=== PATIENT | female | born 1955 | race Caucasian/White ===

== ENCOUNTER → 2016-06-05 | Outpatient (CLI) | payer MEDICAID ==
--- NOTE | 2016-06-05 16:27 | DX ---
PA and Lateral Chest Clinical Indications: Dyspnea. Findings: The lungs are clear, and no masses are found. The heart and pulmonary vessels are normal. Descending thoracic aorta is tortuous, raising a possibility of hypertension. There are no pleural effusions and no pneumothorax. The bones are unremarkable for this age. Impression: No acute cardiopulmonary features. Query systemic hypertension.
== END ==
LOC: BMCIMAGING 14:14
PROVIDERS: ATTEND Internal Medicine Pulmonary Disease
DX: R06.00 Dyspnea, unspecified (principal)

== ENCOUNTER → 2016-07-10 | Outpatient (CLI) | payer MEDICAID ==
--- NOTE | 2016-07-10 23:45 | CT ---
CT Chest Unenhanced History: Possible nodule on radiographs, former smoker. Technique: Axial unenhanced images were obtained through the chest. Coronal MIPs were performed. D ose reduction techniques were utilized. Comparison: PA and lateral chest June 05, 2016. Findings: There is an 8-mm ground-glass opacity in the right upper lobe (series #3, image #54). A s ubtle 2-cm ground-glass opacity is present in the superior segment right lower lobe (image #90). The re is minimal ground-glass associated with a cyst/bulla in the left upper lobe (series #3, image #76) . There is a 5-mm noncalcified nodule/cluster of tiny nodules in the right upper lobe (image #80). A 4-mm anterior subpleural right middle lobe nodule is present (image #155). Additional tiny nodule s are present. There is lingular scarring/atelectasis as well as anterior left lower lobe atelectasi s, accounting for the finding on radiographs. Aneurysmal dilatation of the ascending aorta is presen t, measuring 4.3 x 4.4 cm (AP x transverse) at the level of the main pulmonary artery. The heart siz e is normal. There is trace pericardial fluid. No pathologically enlarged lymph nodes are identifie d. Degenerative change is present in the spine, with no aggressive osseous lesions. There is a lobulated low-attenuation mass versus adjacent masses in the subcapsular left hepatic lobe , measuring up to 6.3 x 4.3 cm in maximal transverse diameter (series #4, image #234). There is cent ral low attenuation in the right margin of the mass. Impression: 1. Indeterminate 6.3 cm hepatic mass, for which MR abdomen with contrast is recommended for further evaluation if this has not been previously evaluated at an outside institution. 2. Aneurysmal dilatation of the ascending aorta, measuring 4.3 cm. 3. Scattered ground-glass opacities and tiny pulmonary nodules, for which initial follow-up of three months is recommended per Fleischner Society guidelines in a smoker. 4. Benign lingular and left lower lobe atelectasis/scarring, accounting for the finding on radiograp hs. 5. Additional findings as above. Findings discussed with [place] in Fuad Yarbrough's office 07/13/2016 at 9:38.
== END ==
LOC: FIMAGING 11:10
PROVIDERS: ATTEND Internal Medicine Pulmonary Disease
DX: R16.0 Hepatomegaly, not elsewhere classified (principal); I71.2 Thoracic aortic aneurysm, without rupture; R91.1 Solitary pulmonary nodule; J98.4 Other disorders of lung; Z87.891 Personal history of nicotine dependence

== ENCOUNTER 2016-07-22 12:50 | Emergency (ER) | payer MEDICAID ==
--- NOTE | 2016-07-22 13:09 | EDPHY ---
H & P Time Seen by Provider: 07/22/16 13:09 HPI/ROS: CHIEF COMPLAINT: Right-sided back pain. HISTORY OF PRESENT ILLNESS: The patient is a 61-year-old female who presents with right lower back pain. This morning she developed stabbing right lower back pain that is worsened with position change. It is alleviated with walking or lying flat. The pain does not radiate and is a 1/10 while at rest. No recent injury. She denies abdominal pain or urinary symptoms. She does not have a history of kidney stones. REVIEW OF SYSTEMS: A complete 10-point review of systems was performed and is negative except for those items mentioned in the HPI, except for chronic cough. Past Medical/Surgical History: COPD Social History: Former smoker. Smoking Status: Former smoker Physical Exam: General Appearance: Alert, talkative, does not appear in pain Eyes: Pupils equal and round, no conjunctival pallor ENT, Mouth: Mucous membranes moist Neck: Normal inspection Respiratory: Lungs are clear to auscultation Cardiovascular: Regular rate and rhythm Gastrointestinal: Abdomen is soft and non-tender Back: Right paraspinous tenderness Neurological: A&O, motor 5/5, sensory intact to light touch, normal gait Skin: Warm and dry, no rash Extremities: Normal inspection, negative straight leg raise Psychiatric: Mood and affect normal Constitutional: Initial Vital Signs Temperature (C) 36.7 C 07/22/16 12:53 Heart Rate 91 07/22/16 12:53 Respiratory Rate 18 07/22/16 12:53 Blood Pressure 151/98 H 07/22/16 12:53 O2 Sat (%) 93 07/22/16 12:53 O2 Delivery Mode Room Air Allergies/Adverse Reactions: No Known Allergies Allergy (Unverified 07/22/16 12:56) Home Medications: Medication Instructions Recorded Disulfiram [Antabuse 250 MG (*)] 250 mg PO DAILY 07/22/16 Levothyroxine [Synthroid 112 mcg 112 mcg PO DAILY06 07/22/16 (*)] Pravastatin Sodium 20 mg PO 07/22/16 Sertraline HCl [Zoloft 25mg (*)] 25 mg PO DAILY 07/22/16 Medical Decision Making ED Course/Re-evaluation: This patient presents with musculoskeletal back pain. No signs or symptoms consistent with intra-abdominal or serious etiology for pain. Dip urinalysis negative for blood. 600mg PO Ibuprofen administered for pain. Past medical record reviewed. Recent CT scan reveals multiple findings, and including multiple lung nodules, a liver mass and a ascending aortic aneurysm. She has been quite worried about the CT scan findings, so I reviewed the findings with her and gave her a printed copy of the CT scan report. She has a follow-up appointment with Dr. Yarbrough tomorrow to review these findings and to further evaluate them. I do not feel that any these findings are related to her complaint today. Differential Diagnosis: Differential diagnosis for back pain includes muscular pain, herniated disc, epidural abscess, discitis, spine fracture, intra-abdominal causes and urinary tract infection. - Data Points Medications Given: Discontinued Medications Ibuprofen (Motrin) 600 mg PO EDNOW ONE Stop: 07/22/16 13:44 Last Admin: 07/22/16 13:56 Dose: 600 mg Departure - Departure Disposition: Home, Routine, Self-Care Clinical Impression: Low back strain Qualifiers: Encounter type: initial encounter Qualified Code(s): S39.012A - Strain of muscle, fascia and tendon of lower back, initial encounter Condition: Good Instructions: Low Back Strain (ED) Additional Instructions: Take 600mg Ibuprofen every 6-8 hours as needed for pain. Call your primary care provider to set up a follow up appointment. Return to the emergency department if you experience any serious worsening of condition. Referrals: FRANCISCO RAMIREZ [Primary Care Provider] - As per Instructions Fuad Yarbrough MD [Medical Doctor] - As per Instructions (Keep your appointment. ) Report Scribed for: Katerin Latham Report Scribed by: Bhavin Redding Date of Report: 07/22/16 Time of Report: 13:37 Physician Review and Approval Statement: 07/22/16 13:10 Portions of this note were transcribed by a medical dir. I personally performed a history, physical exam, medical decision making, and confirmed accuracy of information the transcribed note.
[2016-07-22] MEDS ORDERED: IBUPROFEN 600 MG TAB PO ONE (13:43)
[2016-07-22 14:40] VITALS: BP 123/81; PULSE 52; RESP 16; TEMP 97.5; O2SAT 91
== END 2016-07-22 14:40 | disposition home or self-care (01) ==
DX: S39.012A Strain of muscle, fascia and tendon of lower back, initial encounter (principal); J44.9 Chronic obstructive pulmonary disease, unspecified; Z87.891 Personal history of nicotine dependence; X58.XXXA Exposure to other specified factors, initial encounter